=== PATIENT | female | born 1995 | race Caucasian/White ===

== ENCOUNTER 2020-01-12 08:32 | Emergency (ER) | payer BC, SELFPAY ==
[2020-01-12 08:43] VITALS: BP 133/98; PULSE 86; RESP 17; TEMP 37.1; O2SAT 99; BMI 31.6
--- NOTE | 2020-01-12 08:46 | HMH.EDGENADL ---
ED Disposition Clinical Impression: Upper abdominal pain Disposition: Home, Self-Care Condition on Discharge: Good Instructions: DI for Abdominal Pain-Adult Additional Instructions: Prilosec and Bentyl as prescribed. Follow-up with your primary care doctor for further evaluation and care. You are being provided with a list of physicians available for follow-up of your condition. Please call a physician on this list to arrange a follow-up appointment as soon as possible. Additional instructions for ABDOMINAL PAIN: See your physician as soon as possible for further evaluation. Return immediately if worsening abdominal pain, vomiting, shortness of breath, fever, vomiting of blood or abdominal distention. Prescriptions: Dicyclomine HCl [Bentyl 10mg capsule] 10 mg PO TID #15 cap Transmission Status: Pending to [facility] Pantoprazole Sodium [Protonix 40mg tablet] 40 mg PO DAILY #15 tab Transmission Status[facility] Referrals: PCP,No [Primary Care Provider] - - Critical Care Critical Care Time: No Attestation: On , the high probability of a clinically significant, sudden or life threatening deterioration of the following system(s) required my full and direct attention, intervention and personal management. The time I documented below is in addition to time spent performing reported procedures but includes the following listed in this critical care notation. Medical Decision Making - Tarun Inquiry Pt receiving controlled substance: No Vital Signs: 01/12/20 08:43 01/12/20 10:35 Temperature 98.8 F Temperature Source Oral Pulse Rate [Right Radial] 86 76 Respiratory Rate 17 Blood Pressure [Right Arm] 133/98 H 118/85 Blood Pressure Mean [Right Arm] 109 96 Blood Pressure Position [Right Arm] Sitting 02 Sat by Pulse Oximetry 99 96 Oxygen Delivery Method Room Air Room Air - Lab Data Lab Results 01/12/20 08:45: Urine Color Yellow, Urine Appearance Clear, Urine pH 6.0, Ur Specific Ideal 1.020, Urine Protein Negative, Urine Glucose (UA) Negative, Urine Ketones Negative, Urine Blood 2+, Urine Nitrate Negative, Urine Bilirubin Negative, Urine Urobilinogen 0.2, Ur Leukocyte Esterase Negative, Urine RBC Occasional, Urine WBC 3-5, Ur Squamous Epith Cells 5-10, Urine Bacteria 2+ 01/12/20 08:45: Urine HCG, Qual Negative 01/12/20 08:58: WBC 8.2, RBC 4.78, Hgb 15.2, Hct 43.7, MCV 91.3, MCH 31.8 H, MCHC 34.9, RDW 13.9, Plt Count 259, MPV 7.9, Neut % (Auto) 54.2, Lymph % (Auto) 33.6, [place] % (Auto) 6.2, Eos % (Auto) 5.2, Baso % (Auto) 0.8, Neut # (Auto) 4.4, Lymph # (Auto) 2.8, [place] # (Auto) 0.5, Eos # (Auto) 0.4, Baso # (Auto) 0.1 01/12/20 08:58: Sodium 139, Potassium 4.2, Chloride 105, Carbon Dioxide 26, Anion Gap 12.2, BUN 9, Creatinine 0.60, Estimated Creat Clear 193, Estimated GFR 121, Est GFR ( Amer) 146, Glucose 90, Calcium 10.1, Total Bilirubin 0.4, AST 32, ALT 49, Alkaline Phosphatase 52, Total Protein 7.9, Albumin 4.6, Globulin 3.3 H, Albumin/Globulin Ratio 1.4, Amylase 58, Lipase 102 Result diagrams: 01/12/20 08:58 01/12/20 08:58 Orders (Tests/Meds): ED MEDICATIONS Discontinued Medications Generic Name Dose Route Start Last Admin Trade Name Freq PRN Reason Stop Dose Admin Ioversol 75 ml 01/12/20 10:52 01/12/20 10:52 Rad-Optiray 350 100ml Vial IV 01/12/20 10:53 75 ml ONCE ONE Administration Protocol Sodium Chloride 10 ml 01/12/20 10:52 01/12/20 10:52 Rad-Saline Flush 10ml Syringe IV 01/12/20 10:53 10 ml ONCE ONE Administration ORDERS Category Date Time Status CT abdomen pelvis w con Stat Cat Scan 01/12/20 08:46 Taken Urine Culture Stat Micro 01/12/20 08:45 Received - CT Data CT Scan: Abdomen, Pelvis Time Received: 12:[address] Reviewed: Yes: I have viewed the radiologist's interpretation Findings Narrative: PROCEDURE: CT ABDOMEN PELVIS W CON CLINICAL INDICATION: abd pain Bilateral upper a
[2020-01-12 08:50] LABS: Microscopic, Urine URINE MICROSCOPIC (MICROSCOPIC)
[2020-01-12 08:55] LABS: Appearance,Urine CLEAR (Clear); Bilirubin,Urine Negative (Negative); Blood, Urine 2+ (Negative); Color,Urine YELLOW (Yellow); Glucose,Urine (UA) Negative (Negative); Ketones,Urine Negative (Negative); Leukocyte Esterase,Urine Negative (Negative); Nitrate,Urine Negative (Negative); Protein,Urine Negative (Negative); Urobilinogen,Urine 0.2 EU/dl (0.2)
[2020-01-12 09:09] LABS: Basophils # 0.1 K/mm3 (0-0.2); Basophils % 0.8 % (0.1-2.0); Eosinophils # 0.4 K/mm3 (0.0-0.4); Eosinophils % 5.2 % (0.1-12.0); Hematocrit 43.7 % (37.0-47.0); Hemoglobin 15.2 g/dL (12.2-16.2); Lymphocytes # 2.8 K/mm3 (0.7-4.5); Lymphocytes % 33.6 % (10-50); Mean Corpuscular HGB Conc 34.9 g/dL (31.8-35.4); Mean Corpuscular Hemoglobin 31.8 pg (27.0-31.2); Mean Corpuscular Volume 91.3 fl (81-99); Mean Platelet Volume 7.9 fl (7.4-10.4); Monocytes # 0.5 K/mm3 (0.1-1.0); Monocytes % 6.2 % (1.7-9.3); Neutrophils # 4.4 K/mm3 (1.8-7.8); Neutrophils % 54.2 % (37.0-80.0); Platelet Count 259 K/mm3 (142-424); Red Blood Count 4.78 M/mm3 (4.20-5.40); Red Cell Distribution Width 13.9 % (11.5-17.5); White Blood Count 8.2 K/mm3 (4.8-10.8)
[2020-01-12 09:12] LABS: Urine Pregnancy, HCG Qual. Negative (Negative)
--- NOTE | 2020-01-12 09:12 | US_ITS ---
PROCEDURE: US GALLBLADDER CLINICAL INDICATION: upper abdo pain COMPARISON: No exams were available for comparison FINDINGS: Pancreas: Unremarkable/Not well seen Liver: Fatty liver. There is appropriate direction of blood flow within a non dilated portal vein. Right kidney: Unremarkable appearing. No hydronephrosis. Gallbladder: No stones are evident. There is no gallbladder wall thickening. Common duct is normal in diameter. 3 mm IMPRESSION: Fatty liver otherwise negative right upper quadrant ultrasound Dictated b Sander Hwang MD 01/12/2020 11:27 Sander Hwang MD in [place] 01/12/2020 11:27
[2020-01-12 09:13] LABS: Chloride 105 mmol/L (98-107); Potassium 4.2 mmoL/L (3.5-5.1); Sodium 139 mmol/L (136-145)
[2020-01-12 09:15] LABS: Amylase 58 U/L (30-110)
[2020-01-12 09:16] LABS: Alanine Aminotransferase 49 U/L (12-78); Albumin Level 4.6 g/dl (3.5-5.0); Albumin/Globulin Ratio 1.4 (1.1-1.8); Alkaline Phosphatase 52 U/L (38-126); Anion Gap 12.2 mEq/L (5-15); Aspartate Amino Transferase 32 U/L (14-36); Bilirubin,Total 0.4 mg/dl (0.2-1.3); Blood Urea Nitrogen 9 mg/dl (7-17); Calcium 10.1 mg/dl (8.4-10.2); Carbon Dioxide 26 mmol/L (22.0-30.0); Creatinine Clearance Estimated 193 mL/min (50-200); Estimated Glomerular Filt Rate 121 ml/min (>60); GFR (African American) 146 ML/MIN (>60); Globulin 3.3 g/dL (1.3-3.2); Glucose 90 mg/dl (74-100); Lipase 102 U/L (23-300); Total Protein,Serum 7.9 g/dl (6.3-8.2)
[2020-01-12 10:15] LABS: Bacteria,Urine 2+ /lpf; RBC,Urine Occasional #/hpf (0-3)
--- NOTE | 2020-01-12 10:19 | CT_ITS ---
PROCEDURE: CT ABDOMEN PELVIS W CON CLINICAL INDICATION: abd pain Bilateral upper abdominal pain COMPARISON: No exams were available for comparison TECHNIQUE: IV Contrast: 75ML OPTIRAY 350 Oral Contrast None Axial images obtained with sagittal and coronal reformats. All CT scans at the facility use one or more dose reduction, viz: automated exposure control, ma/kV adjustment per patient size (including targeted exams where dose is matched to indication, i.e. head), or iterative reconstruction technique. FINDINGS: LOWER THORAX: No acute finding ABDOMEN & PELVIS: Fatty liver. There is some focal fatty sparing in gallbladder fossa. The gallbladder, spleen, adrenal glands, and pancreas have an unremarkable appearance. No renal or ureteral calculi. Small nodes are present in the mesenteries and perigastric region. No evidence of appendicitis, intestinal obstruction, free air, or diverticulitis. There are few nondistended small bowel loops with air-fluid levels nonspecific but could be seen with enteritis. Small umbilical hernia containing fat is noted. No acute bony anomalies. No pelvic mass abnormal fluid collection or focal inflammatory change IMPRESSION: Possible mild enteritis Fatty liver Dictated b Sander Hwang MD 01/12/2020 11:08 Sander Hwang MD in [place] 01/12/2020 11:08
[2020-01-12 10:35] VITALS: BP 118/85; PULSE 76; O2SAT 96
--- NOTE | 2020-01-12 11:43 | PC.NURSE ---
pt updated on plan of care. pt verbalizes understanding and denies questions, concerns or needs at this time. pt pending disposition by physician.
[2020-01-12 12:24] VITALS: BP 133/83; PULSE 79; O2SAT 95
[2020-01-12 12:33] VITALS: BP 149/76; PULSE 79; RESP 17; TEMP 36.8; O2SAT 100
== END 2020-01-12 12:34 | disposition home or self-care (01) ==
PROVIDERS: Emergency Provider Emergency Medicine
DX: R10.10 Upper abdominal pain, unspecified (principal); F17.210 Nicotine dependence, cigarettes, uncomplicated
CPT/HCPCS: 74177; 76705; 80053; 81001; 81025; 82150; 83690; 85025; 87086; 87088; 87186; 96374; 99284; Q9967

== ENCOUNTER 2021-01-15 17:03 | Emergency (ER) | payer BC, SELFPAY ==
[2021-01-15 17:35] VITALS: BP 124/68; PULSE 81; RESP 16; TEMP 36.9; O2SAT 97; BMI 31.6
[2021-01-15 18:30] VITALS: BP 124/68; PULSE 81; RESP 16; TEMP 36.9; O2SAT 97; BMI 31.6
[2021-01-15 18:56] VITALS: BP 124/68; PULSE 81; RESP 16; TEMP 36.9; O2SAT 97
--- NOTE | 2021-01-15 19:38 | HMH.EDUTC ---
[facility] Disposition Clinical Impression: Encounter for laboratory testing for COVID-19 virus Disposition: Home, Self-Care Condition on Discharge: Good Instructions: DI for COVID-19 (Suspected or Confirmed ), Coronavirus Disease 2019, Preventing the Spread of Coronavirus Discharge Instructions Additional Instructions: *Monitor Temp, Over the counter Motrin or Tylenol as directed/as needed Tylenol every 4 hours and Motrin every 6 hours (as long as your family doctor has told you that you can take it) for fever or pain. and straight to ER if unable to lower temp less than 101.0 after medication given *Warm salt water gargles may help to soothe the throat *Throat Lozenges *Warm fluids like tea with honey may help to soothe the throat *Sleep elevated *Humidifier/Vaporizer Use medication as prescribe for cough and congestion Follow up IMMEDIATELY for new or worsening symptoms or no Noticeable improvement over the next 48-72 hours. 911 for difficulty breathing or swallowing You were tested for today for COVID19 your test result should be back in the next 24-48 hours, you may call to the [facility] to see if your test results are back in the next 48 hours [phone] [facility] hours are 9am-9pm You was given a handout with instructions for Self Quarantine and Self isolation for while you wait on test results and what to do if they are positive If you are positive the Health Dept will be contacting you also Make sure to take your Vitamins Vit. C Vit D and Zinc if you can take them Prescriptions: Dicyclomine HCl [Bentyl 10mg capsule] 10 mg PO TID PRN #15 cap PRN Reason: Cramping Transmission Status: Pending to [facility] Fluticasone Propionate [Flonase 50mcg nasal spray 16gm] 1 spr NS DAILY #1 ml Transmission Status: Pending to [facility] Ondansetron [Zofran 4mg ODT] 4 mg PO TIDP PRN #12 tab PRN Reason: Nausea Transmission Status: Pending to [facility] Referrals: Provider,Referral, MD [Primary Care Provider] - As needed Forms: Work/School Release Time of Disposition: 19:41 Medical Decision Making - Tarun Inquiry Pt receiving controlled substance: No Tarun was queried for this patient: No Vital Signs: 01/15/21 17:35 01/15/21 18:30 01/15/21 18:56 Temperature 98.5 F 98.5 F 98.5 F Temperature Source Oral Oral Pulse Rate 81 Pulse Rate [Right Radial] 81 81 Respiratory Rate 16 16 16 Blood Pressure 124/68 Blood Pressure [Right Arm] 124/68 124/68 Blood Pressure Mean [Right Arm] 86 86 Blood Pressure Source [Right Arm] Automatic Cuff Blood Pressure Position [Right Arm] Sitting 02 Sat by Pulse Oximetry 97 97 Oxygen Delivery Method Room Air Room Air Orders (Tests/Meds): ORDERS Category Date Time Status Covid-19 Nasal PCR ([facility]) Routine Lab 01/15/21 18:43 Received [facility] HPI - General Stated complaint: diarrhea, nausea, congestion, headache, tired Time Seen by Provider: 01/15/21 19:38 Mode of Arrival: Ambulatory Source of Information: Patient Limitations: No Limitations Description of Symptoms (Recalled from Triage Doc. by RN): PATIENT C/O DIARRHEA, NAUSEA, FATIGUE, HEADACHE, AND CONGESTION HEENT Symptoms (Recalled from RN notes): No Resp Symptoms (Recalled from RN notes): Yes Skin Symptoms (Recalled from RN notes): Yes MS Symptoms (Recalled from RN notes): No Functional Status (Recalled from RN notes): WNL - History of Present Illness Provider Complaint: Patient state that she has been sick over a week with body aches chills, nasal congestion, cough, and diarrhea States that she has been having some cramping at times before the diarrhea States that now daughter is having similar symptoms so she came in to get tested for COVID - Related Data Previous Rx's Medication Instructions Recorded Dicyclomine HCl [Bentyl 10mg 10 mg PO TID #15 cap 01/12/20 capsule] Pantoprazole Sodium [Protonix 40mg 40 mg PO DAILY #15 tab 01/12/20 tablet] Dicyclomine HCl [Zack
== END 2021-01-15 19:52 | disposition home or self-care (01) ==
PROVIDERS: Emergency Provider Nurse Practitioner
DX: Z20.822 Contact with and (suspected) exposure to COVID-19 (principal); R53.1 Weakness; R11.0 Nausea; R51.9 Headache, unspecified; F17.210 Nicotine dependence, cigarettes, uncomplicated
CPT/HCPCS: 99202; G0463; U0003

== ENCOUNTER → 2021-04-29 10:55 | Outpatient (CLI) | payer BC, SELFPAY | PROVIDERS: Visit Provider Nurse Practitioner | DX: Z20.822 Contact with and (suspected) exposure to COVID-19 (principal) | CPT/HCPCS: C9803; U0003; U0005 ==